=== PATIENT | male | born 1995 | race African-American/Black ===

== ENCOUNTER 2021-05-30 19:56 | Inpatient (IN) ==
[2021-05-30 20:48] LABS: Bilirubin,Urine Negative (Negative); Blood,Urine Negative (Negative); Clarity,Urine Clear (Clear); Color,Urine Light-Yellow (Yellow); Glucose,Urine (UA) Normal (Normal); Ketones,Urine Negative (Negative); Leukocyte Esterase,Urine Negative (Negative); Nitrite,Urine Negative (Negative); Protein,Urine Trace mg/dL (Neg-Trace); Specific Gravity,Urine 1.028 (1.010-1.025); Urobilinogen,Urine Normal (Normal)
[2021-05-30 20:49] LABS: Amphetamine Screen,Urine Negative ng/mL (Cutoff=1000); Barbiturate Screen,Urine Negative ng/mL (Cutoff=200); Benzodiazepines Screen,Urine Negative ng/mL (Cutoff=200); Cannabinoid Screen,Urine Negative ng/mL (Cutoff = 50); Cocaine Screen,Urine Negative ng/mL (Cutoff= 300); Opiate Screen,Urine Negative ng/mL (Cutoff=300); Phencyclidine Screen,Urine Negative ng/mL (Cutoff=25)
[2021-05-30 21:21] LABS: Estimated Average Glucose 80 mg/dl; Hemoglobin A1C 4.4 %
[2021-05-30 23:33] LABS: Influenza A PCR Negative (Negative); Influenza B PCR Negative (Negative); Resp. Syncytial Virus PCR Negative (Negative); SARS-CoV-2 by PCR (In House) Negative (Negative)
[2021-05-30] MEDS ORDERED: Mag Hydrox/Al Hydrox/Simeth 30 ML UDC PO PRN (23:49)
[2021-05-30] MEDS ORDERED: Haloperidol Lactate 5 MG/ML VIAL IM PRN (23:49)
[2021-05-30] MEDS ORDERED: *HR* LORazepam 2 MG/ML VIAL IM PRN (23:49)
[2021-05-30] MEDS ORDERED: *HR* LORazepam 1 MG TABLET PO PRN (23:49)
[2021-05-30] MEDS ORDERED: haloperidoL 5 MG TABLET PO PRN (23:49)
[2021-05-30] MEDS ORDERED: MOM Conc 10 ML UD.LIQ PO PRN (23:49)
[2021-05-31] MEDS: OLANZapine 10 MG TAB.RAPDIS PO SCH ×3 (00:56→20:49)
[2021-05-31] MEDS: hydrOXYzine pamoate 25 MG CAPSULE PO PRN (00:56)
[2021-05-31] MEDS: traZODone 50 MG TABLET PO PRN ×2 (00:56→20:49)
[2021-05-31] MEDS: Acetaminophen 325 MG TABLET PO PRN (00:57)
[2021-06-01] MEDS: OLANZapine 10 MG TAB.RAPDIS PO SCH (20:00)
[2021-06-01] MEDS: hydrOXYzine pamoate 25 MG CAPSULE PO PRN (20:00)
[2021-06-01] MEDS: traZODone 50 MG TABLET PO PRN (20:00)
[2021-06-02] MEDS: hydrOXYzine pamoate 25 MG CAPSULE PO PRN (20:08)
[2021-06-02] MEDS: traZODone 50 MG TABLET PO PRN (20:08)
[2021-06-02] MEDS: Acetaminophen 325 MG TABLET PO PRN (20:08)
[2021-06-02] MEDS: OLANZapine 10 MG TAB.RAPDIS PO SCH (20:08)
[2021-06-03] MEDS: traZODone 50 MG TABLET PO PRN (21:18)
[2021-06-03] MEDS: hydrOXYzine pamoate 25 MG CAPSULE PO PRN (21:18)
[2021-06-03] MEDS: OLANZapine 10 MG TAB.RAPDIS PO SCH (21:18)
[2021-06-04] MEDS ORDERED: OLANZapine 5 MG TAB.RAPDIS PO SCH (09:00)
[2021-06-04] MEDS: traZODone 50 MG TABLET PO PRN (20:25)
[2021-06-04] MEDS: OLANZapine 10 MG TAB.RAPDIS PO SCH (20:25)
[2021-06-04] MEDS: hydrOXYzine pamoate 25 MG CAPSULE PO PRN (20:25)
[2021-06-05] MEDS: OLANZapine 10 MG TAB.RAPDIS PO SCH ×2 (08:37→21:01)
[2021-06-05] MEDS: traZODone 50 MG TABLET PO PRN (21:01)
[2021-06-05] MEDS: hydrOXYzine pamoate 25 MG CAPSULE PO PRN (21:01)
[2021-06-06] MEDS: OLANZapine 10 MG TAB.RAPDIS PO SCH (08:43)
[2021-06-06] MEDS: traZODone 50 MG TABLET PO PRN (20:49)
[2021-06-06] MEDS: hydrOXYzine pamoate 25 MG CAPSULE PO PRN (20:49)
[2021-06-06] MEDS ORDERED: OLANZapine 10 MG TAB.RAPDIS PO SCH (21:00)
[2021-06-06 22:40] VITALS: TEMP 98.6
[2021-06-07] MEDS ORDERED: OLANZapine 10 MG TAB.RAPDIS PO SCH (09:00)
[2021-06-07 09:22] VITALS: BP 115/70; PULSE 96; O2SAT 97
[2021-06-07] MEDS ORDERED: FLU Vac QV 21-22 (6Month+)/PF 0.5 ML SYRINGE IM ONE (10:23)
[2021-06-07] MEDS ORDERED: Moderna Covid-19 Vaccine 100MCG/0.5mL IM ONE (11:54)
== END 2021-06-07 14:35 | disposition home or self-care (01) | DRG 751 ==
LOC: EMEROOARM 19:56 → 1ANU 23:52
PROVIDERS: ADMIT Psychiatry & Neurology Psychiatry; ATTEND Psychiatry & Neurology Psychiatry